=== PATIENT | male | born 1995 | race Caucasian/White ===

== ENCOUNTER 2016-03-13 17:34 | Emergency (ER) | payer OTHER ==
--- NOTE | 2016-03-13 17:42 | ER Document Report ---
ED Medical Screen (RME) - General Stated Complaint: SHOULDER PAIN Mode of Arrival: Ambulatory Information source: Patient Notes: Patient presents to the emergency department with complaints of left shoulder pain. Patient reports the shoulder popped out of place. Patient has been seen by his BAS. Reports still having pain. I have greeted and performed a rapid initial assessment of this patient. A comprehensive ED assessment and evaluation of the patient, analysis of test results and completion of the medical decision making process will be conducted by additional ED providers. TRAVEL OUTSIDE OF THE [place] IN LAST 30 DAYS: No - Related Data Allergies/Adverse Reactions: No Known Allergies Allergy (Verified 03/13/16 17:40) Past Medical History Past Surgical History: Reports: Hx Oral Surgery - Immunizations Hx Diphtheria, Pertussis, Tetanus Vaccination: Yes
== END 2016-03-13 17:50 | disposition left against medical advice (07) ==
LOC: ER 17:34
DX: M25.512 Pain in left shoulder (principal); X58.XXXA Exposure to other specified factors, initial encounter; Z53.9 Procedure and treatment not carried out, unspecified reason
CPT/HCPCS: 99281